=== PATIENT | female | born 1965 | race American Indian/Alaskan Native ===

== ENCOUNTER 2021-10-08 05:45 | Day surgery (SDC) | payer OTHER ==
--- NOTE | 2021-10-07 17:56 | Short Stay Summary ---
Short Stay Documentation Date of service: 10/08/21 Narrative H&P: This is a 56 year-old female with postmenopausal bleeding. There was Insufficient tissue for diagnosis noted on her EMB. She has a BMI of 49. She refused SIS due the the financial burden. After reviewing options with risks and benefits and alternatives she desires to proceed with diagnostic hysteroscopy and any other indicated procedures Menstrual History: menopause Menses interval: menopause Menstrual flow: menopause Current Method of Contraception: None Past History : 0 NURSE INFORMATICIST History Operations: Carpal tunne(R) release Trigger finger release (R) Cholecystectomy Tonsillectomy Hemorrhoidectomy Knee Arthroscopy (2017)(L) Repair plantar fascitis (L) Colon polypectomy (2017) Abnormal PAP: negative Infection History HIV Risk Eval: no Hx of STD: None Active Medications (reviewed today): hydroxychloroquine 200 mg tablet (hydroxychloroquine) mycophenolate mofetil 500 mg tablet (mycophenolate mofetil) twice a day Current Allergies (reviewed today): HYDROCODONE (Critical) Past Medical History: Reviewed history from 09/25/2021 and no changes required: Autoimmune Disorder: Discoid lupus Colon polyps (2017) PFH benign needs colonoscopy 2021 Food Allergy: Fresh pineapples Past Surgical History: Reviewed history from 09/25/2021 and no changes required: Carpal tunne(R) release Trigger finger release (R) Cholecystectomy Tonsillectomy Hemorrhoidectomy Knee Arthroscopy (2017)(L) Repair plantar fascitis (L) Colon polypectomy (2017) Family History Summary: Reviewed history Last on 06/28/2021 and no changes required:10/07/2021 Other Family Member - Has No Family History of Uterine Cancer - Entered On: 03/22/2020 Other Family Member - Has No Family History of Small Bowel Cancer - Entered On: 03/22/2020 Other Family Member - Has No Family History of Stomach Cancer - Entered On: 03/22/2020 Other Family Member - Has No Family History of Ovarvian Cancer - Entered On: 03/22/2020 Other Family Member - Has No Family History of Kidney/Urinary Tract Cancer - Entered On: 03/22/2020 Other Family Member - Has No Family History of Spontaneous DVT-PE - Entered On: 03/22/2020 Other Family Member - Has No Family History of Brain Cancer - Entered On: 03/22/2020 Other Family Member - Has No Family History of Breast Cancer - Entered On: 03/22/2020 Other Family Member - Has No Family History of Biliary Tract Cancer - Entered On: 03/22/2020 PGM - Has Family History of Pancreatic Cancer - Entered On: 03/22/2020 MGF - Has Family History Colon Cancer - Entered On: 03/22/2020 Social History: Reviewed history from 03/22/2020 and no changes required: Patient is Smoking History: Patient has never smoked. Risk Factors: Smoked Tobacco Use: Never smoker Smokeless Tobacco Use: Never Passive Smoke Exposure: no HIV High Risk Behavior: no Exercise: yes Seatbelt Use: 100 % Alcohol Use: yes Type: wine on Fridays Drug Use: no Previous Tobacco Use: Signed On - 09/25/2021 Smoked Tobacco Use: Never smoker Smokeless Tobacco Use: Never Passive Smoke Exposure: no HIV High Risk Behavior: no Exercise: yes Times/wk: 2 Type of Exercise: walking Seatbelt Use: 100 % Alcohol Use: no Drug Use: no Physical Exam Appearance: well developed, well nourished, no acute distress Other Exams Lungs: no rales, rhonchi, or wheezes Heart: S1, S2, no murmur, rub, or gallop Genitourinary Exam Uterus: deferred for EUA Impression & Recommendations: Problem # 1: Postmenopausal Bleeding (ICD-627.1) (XJH03-T38.0) Consent reviewed and signed . Possible laparoscopy or laparotomy explained to patient. The risks and alternatives for this surgery were reviewed with the patient. She was informed of possible uterine perforation, bleeding, infection, injury to bowel, bladder, ureters or other adjacent organs. The patient was instructed/informed the following: The normal length of hospital stay for this procedure. Nothing to eat or drink after midnight the evening prior to surgery. Pre-op instruction sheets given.Patient to call for any signs or symptoms of infection. The usual discomforts associated with this procedure were detailed. Proper use of pain medicines was reviewed. Patient was given ample opportunity to have all her questions answered before signing informed consent. Problem # 2: Body Mass Index 50.0-59.9, adult (ICD-V85.43) ([id number]) Problem # 3: Endometrium thickened (ICD-793.5) (DEK80-M45.89) Patient has been reassessed/reevaluated/re-examined. H&P has been reviewed. No interval changes. - History Principal diagnosis: Postmenopausal bleeding - Allergies and Medications Current Medications: Allergies hydrocodone Adverse Reaction (Intermediate, Verified 09/27/21 12:47) Rash pineapple [Pineapple] Adverse Reaction (Verified 02/16/13 13:44) MOUTH AND LIPS BLEED Home Medications Medication Instructions Recorded Confirmed Last Taken Type Hydroxychloroquine [Plaquenil] 200 mg PO DAILY 09/27/21 09/27/21 Unknown History Mycophenolate [Cellcept] 500 mg PO BID 09/27/21 09/27/21 Unknown History Tylenol Extra Strength 500 mg PO PRN PRN 09/27/21 09/27/21 Unknown History - Brief post op/procedure progress note Date of procedure: 10/08/21 Pre-op diagnosis: psotmenopasual bleeding Post-op diagnosis: other (Endometrial polyps) Procedure: Operative hysteroscopy, endometrial polyps, cervical dilation and uterine curettage Anesthesia: MAC Findings: thickened endometrium, endometrial polyps Surgeon: SHANA BEGUM Estimated blood loss: minimal Pathology: list Specimen disposition: to lab Condition: stable - Hospital course Hospital course: normal - Disposition Condition at discharge: Good Disposition: 01 HOME / SELF CARE / HOMELESS - Discharge Diagnoses (1) Postmenopausal bleeding Status: Acute (2) Endometrial thickening on ultrasound Status: Acute (3) Insufficient tissue for diagnosis Status: Acute (4) Body mass index (BMI) of 50-59.9 in adult Status: Chronic (5) Endometrial polyp Status: Acute Short Stay Discharge Plan Activity: other (no sex x 1 weeks) Weight Bearing Status: Full Weight Bearing Diet: low fat, low cholesterol, low salt Follow up with: CLAUDIA MANUEL MD [Primary Care Provider] - 7 Days SHANA BEGUM MD [Staff Physician] - (As scheduled) Prescriptions: Ibuprofen [Motrin 800 MG tab] 800 mg PO Q8HR PRN #30 tablet PRN Reason: Pain, Moderate (4-6) traMADoL [Ultram 50 MG tab] 50 mg PO Q6HR PRN #7 PRN Reason: Pain , Severe (7-10)
[2021-10-08] MEDS ORDERED: ceFAZolin/Water 2 GM/20 ML 2 GM/20 ML SYRINGE IV SCH (06:00)
[2021-10-08] MEDS ORDERED: LACTATED RINGERS 1,000 ML ONE (06:42)
[2021-10-08] MEDS ORDERED: SODIUM CHLORIDE 0.9% IRRIG SOLN 2000 ML IR ONE ×2 (07:33)
--- NOTE | 2021-10-08 07:40 | Anesthesia Consultation ---
Anesthesia Consult and Med Hx Date of service: 10/08/21 - Airway Anesthetic Teeth Evaluation: Good ROM Head & Neck: Adequate Mental/Hyoid Distance: Adequate Mallampati Class: Class III Intubation Access Assessment: Possibly Difficult - Pulmonary Exam CTA: Yes - Cardiac Exam Cardiac Exam: RRR - Pre-Operative Health Status ASA Pre-Surgery Classification: ASA3 Proposed Anesthetic Plan: General - Pulmonary Hx Smoking: No Hx Sleep Apnea: No - Cardiovascular System Hx Hypertension: No Hx Cardia Arrhythmia: No - Central Nervous System Hx Neuromuscular Disorder: No Hx Psychiatric Problems: No - Gastrointestinal Hx Gastroesophageal Reflux Disease: Yes (MILD) - Endocrine Hx Renal Disease: No Hx Liver Disease: No Hx Non-Insulin Dependent Diabetes: No Hx Thyroid Disease: No - Hematic Hx Anemia: No Hx Sickle Cell Disease: No - Other Systems Hx Alcohol Use: Yes (OCC. WINE) Hx Substance Use: No Hx Cancer: No Hx Obesity: Yes - Additional Comments Anesthesia Medical History Comments: No GAC. No FHAC.
--- NOTE | 2021-10-08 07:40 | Anesthesia Day of Surgery ---
Anesthesia Day of Surgery - Day of Surgery Patient Examined: Yes Patient H&P Reviewed: Yes Patient is NPO: Yes
[2021-10-08] MEDS ORDERED: ONDANSETRON 4 MG/2 ML INJ ONE (07:46)
[2021-10-08] MEDS ORDERED: LIDOCAINE MPF (2%) 20 MG/1 ML VIAL 5 ML ONE (07:46)
[2021-10-08] MEDS ORDERED: fentaNYL 100 MCG/2 ML INJ ONE (07:46)
[2021-10-08] MEDS ORDERED: propofoL 200 MG/20 ML VIAL IV ONE (07:47)
[2021-10-08] MEDS ORDERED: LACTATED RINGERS 1,000 ML IV SCH (08:00)
[2021-10-08] MEDS ORDERED: dexAMETHasone 20 MG/5 ML VIAL ONE (08:14)
[2021-10-08] MEDS ORDERED: ONDANSETRON 4 MG/2 ML INJ IV PRN (08:30)
[2021-10-08] MEDS ORDERED: HYDROmorphone 0.5 MG/0.5 ML INJ IV PRN ×2 (08:30)
--- NOTE | 2021-10-08 09:33 | Operative Report ---
Operative Report Operative Report: Date: October 08, 2021 PREOPERATIVE DIAGNOSES: 1. Postmenopausal bleeding 2. Body mass index 50 kg/m POSTOPERATIVE DIAGNOSES: 1. Postmenopausal bleeding 2. Body mass index 50 kg/m PROCEDURE PERFORMED: 1. Hysteroscopy. 2. Cervical dilation and uterine curettage (D&C) 3. Uterine polypectomy using the NovaSure device ANESTHESIA: MAC ESTIMATED BLOOD LOSS: Less than minimal cc. INDICATIONS: This is a 56-year-old female that presents postmenopausal bleed, insufficient tissue obtained with office endometrial biopsy Pipelle.. PROCEDURE: The patient was seen in the preoperative suite. Expected procedure and postoperative course discussed with her. She was taken to the operative suite where monitored anesthetic care was performed. She was placed in a dorsal lithotomy position. She was prepped and draped in the normal sterile fashion. Timeout was performed. Her bladder was drained with the red Rivera catheter which produced approximately 300 cc of clear yellow urine. The cervix and vagina were grossly normal with no obvious masses or deformities. A weighted operative speculum was placed in the vagina and the anterior lip of the cervix was grasped with the single-tooth tenaculum. The uterus was sounded to ~8 cm. The cervix was progressively dilated to allow the diagnostic hysteroscope. Under direct visualization, the ostia were within normal limits. The endometrial lining appeared thickened with endometrial polyps, however, there was no obvious evidence of malignancy. The hysteroscope was removed and a small sharp curette was placed intrauterine very carefully using anterior wall for guidance. Endometrial curettings were obtained. The endometrial sampling was placed on Telfa pad and sent to Pathology for evaluation, permanent. The hysteroscope was introduced again, polyps were still present. Decision was made to proceed with polypectomy using the MyoSure reach device. The cervix was further dilated to allow the operative hysteroscope. Polypectomy was performed in the usual fashion using the MyoSure device. No evidence of perforation was noted. At this point procedure was ended. The single-tooth tenaculum and speculum were removed. The cervix was found to be hemostatic. Counts were correct. Patient was taken to the PACU stable. Distention fluid: Normal saline Deficit: 100 mL
--- NOTE | 2021-10-08 16:04 | Post Anesthesia Evaluation ---
- Post Anesthesia Evaluation Patient Participated: Yes Airway Patent: Yes Stable Respiratory Function: Yes Nausea/Vomiting: No Temp > 96.8F: Yes Pain Manageable: Yes Adequeate Hydration: Yes Anesthesia Complications: No Block Receding Appropriately: Not Applicable Patient on Ventilator: No
[2021-10-08 16:50] VITALS: BP 151/79
== END 2021-10-08 10:20 | disposition home or self-care (01) ==
LOC: OR 05:45
PROVIDERS: ATTEND Obstetrics & Gynecology
DX: N95.0 Postmenopausal bleeding (principal); N84.0 Polyp of corpus uteri; R93.89 Abnormal findings on diagnostic imaging of other specified body structures; K21.9 Gastro-esophageal reflux disease without esophagitis; M06.9 Rheumatoid arthritis, unspecified; Z90.49 Acquired absence of other specified parts of digestive tract; Z20.822 Contact with and (suspected) exposure to COVID-19; Z72.89 Other problems related to lifestyle; Z79.899 Other long term (current) drug therapy; Z88.8 Allergy status to other drugs, medicaments and biological substances; Z98.890 Other specified postprocedural states
CPT/HCPCS: 58558; 81025; 88305; C1782; J0690; J1100; J2405; J2704; J3010; J7120; U0003